=== PATIENT | male | born 1965 ===

== ENCOUNTER 2018-07-31 09:20 | Inpatient (IN) | payer MEDICARE, MEDICAID ==
[~2018-07-31] VITALS: Ht 165.1 cm; Wt 97.1 kg
[2018-07-31 09:55] LABS: MEAN CORPUSCULAR HGB CONC 32.9 g/dL (33.2-36.2); MEAN CORPUSCULAR VOLUME 97.2 fL (81-97); MEAN PLATELET VOLUME 9.3 fL (7.4-10.4); PLATELET COUNT 204 x10^3/uL (130-400); RED BLOOD COUNT 4.88 x10^6/uL (4.38-5.82); RED CELL DISTRIBUTION WIDTH 18.5 % (9.4-14.8)
[2018-07-31 09:56] LABS: MD YES
[2018-07-31] MEDS ORDERED: SODIUM CHLORIDE FLUSH 10ML SYR IVF PRN (10:00)
[2018-07-31] MEDS ORDERED: SODIUM CHLORIDE FLUSH 10ML SYR IVF ONE (10:00)
[2018-07-31 10:08] LABS: ALANINE AMINOTRANSFERASE 15 U/L (12-78); ALBUMIN 3.2 g/dL (3.4-5.0); ANION GAP 15 mmol/L (5-15); CALCIUM 7.9 mg/dL (8.5-10.1); CHLORIDE 100 mmol/L (98-107)
[2018-07-31 10:10] LABS: ALKALINE PHOSPHATASE 134 U/L (45-117); BILIRUBIN,TOTAL 0.5 mg/dL (0.2-1.0); TOTAL PROTEIN 7.2 g/dL (6.4-8.2)
[2018-07-31 10:30] LABS: ANISOCYTOSIS 1+; BAND#(MANUAL) 0.14 x10^3/uL; BANDS%(MANUAL) 2 % (0-7); LYMPH#(MANUAL) 0.07 x10^3/uL (1-3.4); LYMPHS% (MANUAL) 1 % (22-44); MONOS#(MANUAL) 0.22 x10^3/uL (0.3-2.7); MONOS% (MANUAL) 3 % (2-9); SEG#(MANUAL) 6.77 x10^3/uL (1.8-6.8); SEGS% (MANUAL) 94 % (42-75)
[2018-07-31 10:31] LABS: <PLATELET ESTIMATE> ADEQUATE; <PLT MORPHOLOGY> NORMAL PLT MORPH; POLYCHROMASIA 1+
[2018-07-31] MEDS ORDERED: SODIUM CHLORIDE 0.9% 1,000 ML IV SCH (10:35)
[2018-07-31] MEDS ORDERED: ASPI-515 PO (10:37)
[2018-07-31] MEDS ORDERED: [UNRECOGNIZED DRUG - CODE] PO (10:37)
[2018-07-31] MEDS ORDERED: CARV12.52 PO (10:37)
[2018-07-31] MEDS ORDERED: HYDR-3237 PO (10:37)
[2018-07-31] MEDS ORDERED: CINA30TA2 PO (10:37)
[2018-07-31] MEDS ORDERED: METO10TA2 PO (10:37)
[2018-07-31] MEDS ORDERED: FERR-51 PO (10:37)
[2018-07-31] MEDS ORDERED: DOCU100C33 PO (10:37)
[2018-07-31] MEDS ORDERED: LACT10SO28 PO (10:37)
[2018-07-31] MEDS ORDERED: PANT40TA5 PO (10:37)
[2018-07-31] MEDS ORDERED: ATOR10TA9 PO (10:37)
[2018-07-31] MEDS ORDERED: LORA-446 PO (10:37)
[2018-07-31] MEDS ORDERED: RANI150C PO (10:37)
[2018-07-31] MEDS ORDERED: VITA1CAP PO (10:37)
[2018-07-31] MEDS ORDERED: ENALAPRILAT 1.25 MG/ML, 2ML IV PRN (11:00)
[2018-07-31] MEDS ORDERED: morphine SULFATE 10 MG/ML, 1ML IVPush PRN (11:00)
[2018-07-31] MEDS ORDERED: HYDROcodone/APAP 5/325 TABLET PO PRN (11:00)
[2018-07-31] MEDS ORDERED: LABETALOL 5MG/ML, 20ML IVPush PRN (11:00)
[2018-07-31] MEDS ORDERED: ACETAMINOPHEN 325 MG TABLET PO PRN (11:00)
[2018-07-31] MEDS ORDERED: OXYcodone IR 5MG TABLET PO PRN (11:00)
[2018-07-31] MEDS ORDERED: DOCUSATE 100 MG CAPSULE PO PRN (11:00)
[2018-07-31] MEDS ORDERED: hydrALAzine 20 MG/ML, 1ML IV PRN (11:00)
[2018-07-31] MEDS ORDERED: ONDANSETRON 2MG/ML, 2ML IVPush PRN (11:00)
[2018-07-31] MEDS ORDERED: POLYETHYLENE GLYCOL 17 GM PACKET PO PRN (11:00)
[2018-07-31 11:30] VITALS: BP 109/68
[2018-07-31 11:46] LABS: TROPONIN I < 0.015 ng/mL (0.000-0.045)
[2018-07-31] MEDS: HEPARIN 5,000 UNITS/ML, 1ML SQ SCH ×2 (12:31→20:50)
[2018-07-31] MEDS ORDERED: LACTULOSE 10 GM/15 ML UDC PO PRN (16:00)
[2018-07-31] MEDS ORDERED: LACTULOSE 10 GM/15 ML UDC PO SCH (16:00)
[2018-07-31] MEDS: METOCLOPRAMIDE 10MG TABLET PO SCH ×2 (16:00→20:49)
[2018-07-31 20:00] VITALS: BP 137/85
[2018-07-31] MEDS: CARVEDILOL 12.5 MG TABLET PO SCH (20:49)
[2018-07-31] MEDS: FERROUS SULFATE 325 MG TABLET PO SCH (20:49)
[2018-07-31] MEDS: LORazepam 1MG TABLET PO SCH (20:49)
[2018-07-31] MEDS ORDERED: FAMOTIDINE 20 MG TABLET PO SCH ×2 (21:00)
[2018-07-31] MEDS ORDERED: CARVEDILOL 12.5 MG TABLET PO SCH (21:00)
[2018-07-31] MEDS ORDERED: ATORVASTATIN 40 MG TABLET PO SCH (21:00)
[2018-08-01 02:00] VITALS: BP 96/65
[2018-08-01] MEDS: HEPARIN 5,000 UNITS/ML, 1ML SQ SCH ×2 (04:45→13:04)
[2018-08-01 05:40] LABS: CHLORIDE 99 mmol/L (98-107)
[2018-08-01 05:50] LABS: ANION GAP 12 mmol/L (5-15); CALCIUM 7.8 mg/dL (8.5-10.1); TROPONIN I < 0.015 ng/mL (0.000-0.045)
[2018-08-01 06:45] VITALS: BP 119/78
[2018-08-01 07:07] VITALS: BP 119/75
[2018-08-01] MEDS: METOCLOPRAMIDE 10MG TABLET PO SCH ×2 (08:26→15:22)
[2018-08-01] MEDS: FERROUS SULFATE 325 MG TABLET PO SCH (08:26)
[2018-08-01] MEDS: CARVEDILOL 12.5 MG TABLET PO SCH (08:26)
[2018-08-01] MEDS: LORazepam 1MG TABLET PO SCH (08:27)
[2018-08-01] MEDS ORDERED: DOCUSATE 100 MG CAPSULE PO SCH (09:00)
[2018-08-01] MEDS ORDERED: ASPIRIN 81 MG TABLET EC PO SCH (09:00)
[2018-08-01] MEDS ORDERED: CINACALCET 30 MG TABLET PO SCH (09:00)
[2018-08-01 13:49] VITALS: BP 135/82
== END 2018-08-01 18:36 | disposition home or self-care (01) | DRG 682 ==
LOC: ED 09:39 → EDIP 09:52 → 4WST 11:19
PROVIDERS: ADMIT Internal Medicine; ATTEND Internal Medicine
PROC: 5A1D70Z Performance of Urinary Filtration, Intermittent, Less than 6 Hours Per Day (ICD-10-PCS; principal; 2018-07-31)
DX: I12.0 Hypertensive chronic kidney disease with stage 5 chronic kidney disease or end stage renal disease (principal); N18.6 End stage renal disease; N25.81 Secondary hyperparathyroidism of renal origin; E44.0 Moderate protein-calorie malnutrition; K56.0 Paralytic ileus; E11.22 Type 2 diabetes mellitus with diabetic chronic kidney disease; A08.4 Viral intestinal infection, unspecified; E87.5 Hyperkalemia; E78.5 Hyperlipidemia, unspecified; K21.9 Gastro-esophageal reflux disease without esophagitis; N25.0 Renal osteodystrophy; K59.00 Constipation, unspecified; D63.1 Anemia in chronic kidney disease; F10.21 Alcohol dependence, in remission; E83.51 Hypocalcemia; I25.10 Atherosclerotic heart disease of native coronary artery without angina pectoris; I25.2 Old myocardial infarction; Z68.35 Body mass index [BMI] 35.0-35.9, adult; Z99.2 Dependence on renal dialysis; Z79.82 Long term (current) use of aspirin; Z79.899 Other long term (current) drug therapy; Z88.8 Allergy status to other drugs, medicaments and biological substances
CPT/HCPCS: 36415; 80048; 80053; 82962; 83690; 83735; 84100; 84484; 85025; 86705; 86706; 87340; 93005; 99285; G0378; J1644; J2270; J7030

== ENCOUNTER 2020-08-07 06:08 | Day surgery (SDC) | payer MEDICARE, MEDICAID ==
[~2020-08-07] VITALS: Ht 165.1 cm; Wt 95.3 kg
[~2020-08-07 06:08] MED LIST: ASPI-515 PO; ATOR10TA9 PO; CARV12.52 PO; CINA30TA2 PO; DOCU100C33 PO; FERR-51 PO; HYDR-3237 PO; LACT10SO28 PO; LORA-446 PO; METO10TA2 PO; PANT40TA6 PO; RANI150C PO; VITA1CAP PO; [UNRECOGNIZED DRUG - CODE] PO
[2020-08-07] MEDS ORDERED: SODIUM CHLORIDE 0.9% 1,000 ML IV SCH (06:32)
[2020-08-07 07:22] VITALS: BP 188/100
[2020-08-07 07:36] LABS: ANION GAP 6 mmol/L (5-15); CALCIUM 9.9 mg/dL (8.5-10.1); CHLORIDE 98 mmol/L (98-107)
[2020-08-07] MEDS ORDERED: NALOXONE 1 MG/ML, 2ML ONE (08:10)
[2020-08-07] MEDS ORDERED: FENTANYL PF 100 MCG/2ML ONE (08:10)
[2020-08-07] MEDS ORDERED: FLUMAZENIL 0.1 MG/1 ML, 5ML ONE (08:10)
[2020-08-07] MEDS ORDERED: MIDAZOLAM 1 MG/ML, 5ML ONE (08:10)
== END 2020-08-07 09:55 | disposition home or self-care (01) ==
LOC: OUT 06:08
PROVIDERS: ATTEND Radiology Diagnostic Radiology
DX: R19.09 Other intra-abdominal and pelvic swelling, mass and lump (principal); C77.2 Secondary and unspecified malignant neoplasm of intra-abdominal lymph nodes; E11.22 Type 2 diabetes mellitus with diabetic chronic kidney disease; I13.2 Hypertensive heart and chronic kidney disease with heart failure and with stage 5 chronic kidney disease, or end stage renal disease; I50.9 Heart failure, unspecified; N18.6 End stage renal disease; F41.9 Anxiety disorder, unspecified; K21.9 Gastro-esophageal reflux disease without esophagitis; K59.00 Constipation, unspecified; I25.2 Old myocardial infarction; G47.33 Obstructive sleep apnea (adult) (pediatric); Z79.891 Long term (current) use of opiate analgesic; Z79.899 Other long term (current) drug therapy; Z88.8 Allergy status to other drugs, medicaments and biological substances; Z99.2 Dependence on renal dialysis
CPT/HCPCS: 36415; 49180; 77012; 80048; 82962; 88305; 88341; 88342; 99156; 99157; J2250; J3010; J7030; J2310